=== PATIENT | male | born 1990 | race Native Hawaiian/Other Pacific Islander ===

== ENCOUNTER 2019-04-23 14:41 | Emergency (ER) | payer OTHER ==
--- NOTE | 2019-04-23 16:29 | ED Physician Documentation ---
History of Present Illness - Stated complaint Stated Complaint: LUMP ON RIGHT CHEEK - Chief complaint Chief Complaint: Heent - History obtained from History obtained from: Patient - History of Present Illness Timing: Other (He always has had a little lump on the right cheek, but it has become much bigger and more inflamed over the last few days.) Review of Systems Constitutional: denies: Fever, Chills Cardiac: denies: Chest pain / pressure, Palpitations Respiratory: denies: Dyspnea, Cough PD PAST MEDICAL HISTORY - Past Medical History Past Medical History: No Cardiovascular: None Respiratory: None Neuro: None Endocrine/Autoimmune: None GI: None : None HEENT: None Psych: None Musculoskeletal: None Derm: None - Past Surgical History Past Surgical History: No - Present Medications Home Medications: Ambulatory Orders Medication Instructions Recorded Confirmed Cephalexin [Keflex] 500 mg PO Q6H #28 capsule 04/23/19 - Allergies Allergies/Adverse Reactions: Allergies Allergy/AdvReac Type Severity Reaction Status Date / Time No Known Drug Allergies Allergy Verified 04/23/19 14:50 - Social History Does the pt smoke?: Yes Smoking Status: Current every day smoker Does the pt drink ETOH?: Yes Does the pt have substance abuse?: No - Immunizations Immunizations are current?: Yes - POLST Patient has POLST: No PD ED PE NORMAL - Vitals Vital signs reviewed: Yes - General General: Alert and oriented X 3, No acute distress - HEENT HEENT: Other (Pointed and inflamed sebaceous cyst over the right jawline without intraoral extension.) - Neck Neck: Supple, no meningeal sign, No bony TTP - Neuro Neuro: Alert and oriented X 3, Normal speech - Psych Psych: Normal mood, Normal affect Results - Vitals Vitals: Vital Signs - 24 hr 04/23/19 14:48 Temperature 36.6 C Heart Rate 84 Respiratory 14 Rate Blood Pressure 153/88 H O2 Saturation 100 Oxygen O2 Source Room air Procedures - Abscess I&D (location) face Preparation: Alcohol, Lidocaine 1%, With epi Incision: Incised with scalpel, Purulent drainage (sebaceous), Loculations broken. No: Packed, Culture obtained Other: Pt tolerated well, Dressing applied, Antibiotic prescribed Departure - Departure Disposition: 01 Home, Self Care Clinical Impression: Sebaceous cyst Condition: Good Record reviewed to determine appropriate education?: Yes Health Concerns: sebaceous cyst Plan of Treatment: As discussed this is known as a sebaceous cyst. We have incised and drained it today and put on antibiotics. It may become a recurrent issue, if so [place] for excision when it is not inflamed. Return if worse. Care Goals: resolution Assessment: as above Instructions: ED Cyst Sebaceous Infec IandD Prescriptions: Cephalexin [Keflex] 500 mg PO Q6H #28 capsule Comments: As discussed this is known as a sebaceous cyst. We have incised and drained it today and put on antibiotics. It may become a recurrent issue, if so [place] for excision when it is not inflamed. Return if worse.
[2019-04-23 16:45] VITALS: BP 141/94
== END 2019-04-23 16:46 | disposition home or self-care (01) ==
LOC: ED 14:41
DX: L72.3 Sebaceous cyst (principal); F17.200 Nicotine dependence, unspecified, uncomplicated
CPT/HCPCS: 10060